=== PATIENT | male | born 2000 | race Caucasian/White ===

== ENCOUNTER 2020-11-17 07:00 | Day surgery (SDC) | payer OTHER, SELFPAY ==
--- NOTE | 2020-11-17 | EGD_PTH ---
PATIENT: SOPHIA PRUITT LOC: EN U#:[id number] AGE/SX: 20/M ROOM: RE11/17/[address]: Dr. Thai Benites MD : 2000 BED: DIS: 11/17/2020 SPEC #: [id number] RECD: 11/17/20 13:06 STATUS: JAIME AMANUEL #: [id number] ANNETTE: 11/17/20 00:[address]: Thai Benites DEPT: SURGICAL PATHOLOGY RECD BY: Walter Greene ENTERED: 11/17/20 13:06 SP TYPE: EGD BIOPSY OT DR: Dr. Narciso Meneses, DO Tissues: A - Duodenum, NOS B - Gastric mucous membrane C - Esophageal mucous membrane D - Esophageal mucous membrane Procedures: Surgery Specimen Level IV HEADER OPERATION: EGD ([facility] [place]) PRE-OP DIAGNOSIS: Gastric reflux, weight loss TISSUE SUBMITTED: A ? Duodenum biopsy, B ? Antrum biopsy for histo and H. pylori, C ? Distal esophagus biopsy, D ? Mid esophagus biopsy MICROSCOPIC DIAGNOSIS A. 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 B. Antrum, biopsy: Mild gastritis. See microscopic description and comment. C. Distal esophagus, biopsy: A fragment of squamous epithelium with minimal chronic inflammation. D. Mid esophagus, biopsy: A fragment of squamous epithelium with mild chronic inflammation. SJ:rg 11/20/2020 COMMENT B. The results of immunohistochemistry for Helicobacter pylori will be reported separately ([id number]). MICROSCOPIC DESCRIPTION Slides are reviewed. B. The specimen shows fragments of gastric mucosa with chronic inflammatory cell infiltrates in the lamina propria consisting of lymphocytes and plasma cells, consistent with mild chronic gastritis. Correlation with clinical, endoscopic findings and appropriate follow up are necessary. GROSS DESCRIPTION A - Received in fixative is one container labeled with the patient's name and designated duodenum biopsy. The specimen consists of two irregular fragments of light lua soft tissue that in aggregate measure 0.6 x 0.5 x 0.1 cm. The specimen is totally submitted in one cassette. B - Received in fixative is one container labeled with the patient's name and designated antrum biopsy. The specimen consists of one irregular fragment of light lua soft tissue that measures 0.3 x 0.3 x 0.1 cm. The specimen is totally submitted in one cassette. C - Received in fixative is one container labeled with the patient's name and designated distal esophagus biopsy. The specimen consists of one irregular fragment of light lua soft tissue that measures 0.7 x 0.3 x 0.1 cm. The specimen is totally submitted in one cassette. D - Received in fixative is one container labeled with the patient's name and designated mid esophagus biopsy. The specimen consists of one irregular fragment of light lua soft tissue that measures 0.5 x 0.2 x 0.1 cm. The specimen is totally submitted in one cassette. / SJ:rg 11/17/20 TC:3 CPT: 80399 x4
[2020-11-17 07:20] VITALS: BP 122/47; PULSE 64; RESP 18; TEMP 36.2; O2SAT 100; BMI 21.5
[2020-11-17] MEDS: Lactated Ringers 1,000 ML 100 ML IV (07:30)
--- NOTE | 2020-11-17 07:53 | HP.PCM_ITS ---
History and Physical Date of Admission: 11/17/20 Intake Visit Reasons: GERD, WEIGHT LOSS Chief Complaint: gerd Coating Inspector Required: No Is patient in pain?: No Allergies No Known Allergies Allergy (Unverified 10/25/20 14:51) Medications pantoprazole 40 mg tablet,delayed release 40 mg PO DAILY #30 tab 10/18/20 [Rx Confirmed 10/25/20] [facility] Medical History Peptic duodenitis Family History (Updated 10/25/20 @ 14:50 by Jayleen Ibarra) Father Hypertension Unknown Malignant hyperthermia due to anesthesia Social History (Updated 10/25/20 @ 14:50 by Jayleen Ibarra) Smoking Status: Never smoker alcohol intake: never HPI HPI HPI: SOPHIA PRUITT, is a 20 M who presents to the office today for surgical consultation regarding indigestion and weight loss. The patient is referred by Dr. Jose Meneses and written copy my surgical consult recommendations will return to him. The patient was recently prescribed pantoprazole 40 mg daily. He had presented to Dr. Meneses with concerns of epigastric pain and weight loss. These problems have been ongoing since May 2020. Apparently previously after being placed on H2 blockers and proton pump inhibitors the epigastric pain seemed to resolve but then he started having problems with GE reflux. At the time of his presentation Dr. Meneses he was taking no medications. He was complaining of a 15 pound weight loss. In addition the patient is reporting some difficulty with having food go down but will improve by taking water. By report the patient had a barium swallow. By verbal report this was normal. The patient also had a ultrasound. By report this was also normal. Both of these were exams performed at [facility]. The patient denies having had COVID-19 to his understanding. He has not been vaccinated and at this point is not anticipating pursuing that. His occupation is making furniture ROS General General: Yes weight change; No appetite, fatigue, colon cancer, breast cancer or weakness HEENT HEENT: No difficulty swallowing, eye injury, eye surgery, swollen glands or hoarseness Endo Endocrine: No thyroid disease, diabetes mellitus, thyroid cancer, Hair loss, heat intolerance or cold intolerance Skin Skin: No rash or changing moles Breast Breast: No left breast lump, right breast lump, nipple discharge, breast pain, abnormal mammogram, abnormal US or breast enlargement Musc Musculoskeletal: No back problems, arthritis, rheumatoid arthritis, gout or joint pain Cardio Cardiovascular: No murmur, pacemaker, heart disease, atrial fibrillation, high blood pressure, heart attack, heart stent, palpitations, shortness of breat with exertion or chest pain Psych Psychiatric: No depression, anxiety or hearing voices Resp Respiratory: No shortness of breath, No sleep apnea, No cough, No COPD, No asthma, No emphysema and No wheezing Gastro Gastrointestinal: Yes abdominal pain, No nausea or vomiting, No diarrhea, Yes constipation, No blood in stool, Yes acid reflux, No hemorrhoids, Yes ulcers, No gallbladder problem and No black,tarry stools Christiano Hematologic: No blood thinners, No blood disorders, No bleeding, No anemia and No blood clots Neuro Neurologic: No system reviewed and no additional complaints, except as documented, No as per HPI, No abnormal gait, No abnormal hearing, No abnormal movements, No abnormal speech, No behavioral changes, No burning sensations, No confusion, No convulsions, No disequilibrium, No dizziness, No localized weakness, No frequent falls, No headache(s), No lack of coordination, No loss of vision, No memory loss, No numbness, No other visual disturbances, No radicular pain, No restless legs, No sensory deficit, No syncope, No tingling, No tremor(s), No weakness and No other Exam Const General: cooperative, healthy appearing, comfortable and no acute distress Nutritional Appearance: average body habitus Orientation: alert and awake [facility] Head: normal to inspection Eyes General: appearance normal, both eyes and all related structures Chest Chest palpation & inspection: normal inspection of the chest Resp Effort & Inspection: normal respiratory effort Auscultation: clear to auscultation bilaterally Cardio Rate: regular rate Rhythm: regular rhythm GI Palpation: soft and no hepatosplenomegaly Auscultation: normal bowel sounds Musc Cervical Spine: normal cervical lordosis Neuro Cognition: normal cognition Extrem General: no calf tenderness Psych Affect: normal affect COVID (Procedure Consent) Procedure Criteria Procedure Criteria: Yes Elective The surgeon/proceduralist and patient have discussed in detail the risk of exposure to and/or potential harm posed by the COVID-19 virus with having a surgery/procedure at this time versus the risk of delaying the surgery/procedure. It is not possible to know either the risk of delaying the surgery or procedure or chance of getting an infection with perfect accuracy, but a joint decision was made between the patient and the surgeon/proceduralist to proceed at this time with the scheduled surgery/procedure as indicated on the consent form. Assessment and Plan Assessment and Plan (1) Gastric reflux: Status: Acute (2) Weight loss, non-intentional: Status: Acute Plan - Dr. Thai Benites MD: 20-year-old gentleman who has had problems with retrosternal pain and heartburn and symptoms that sound like gastroesophageal reflux disease. He is currently on pantoprazole and taking it and and symptoms have improved. There are no specific food categories to cause problems. He thinks peanut butter can be problematic but then he just ate peanuts today without trouble. I propose for him a esophagogastroduodenoscopy with possible biopsy. Careful inspection for H. pylori or reflux changes or stricturing or eosinophilic esophagitis will be pursued. I have also requested that we obtain records of the previous barium swallow and ultrasound test performed in [facility]. He claims a family history of malignant hyperthermia. I will perform the procedure with monitored anesthesia care. He has had an opportunity to ask and have questions answered. We will schedule procedure at his discretion. I very much appreciate the kind opportunity of assisting with the surgical care. Copy: Dr. Jose Benites M.D., F.A.C.S. I have re-examined the patient. There are no clinical changes since date of exam. Thai Benites M.D., F.A.C.S.
--- NOTE | 2020-11-17 08:00 | IMM_PTH ---
PATIENT: SOPHIA PRUITT LOC: EN U#:[id number] AGE/SX: 20/M ROOM: RE11/17/[address]: Dr. Thai Benites MD : 2000 BED: DIS: 11/17/2020 SPEC #: [id number] RECD: 11/17/20 13:44 STATUS: JAIME RENiesha #: [id number] ANNETTE: 11/17/20 08:[address]: Thai Benites DEPT: IMMUNOHISTOCHEMISTRY RECD BY: Elly Sung ENTERED: 11/17/20 13:44 SP TYPE: IMMUNO OTHR DR: Dr. Narciso Meneses, DO Tissues: B - Stomach, NOS Procedures: H Pylori (initial) PHYSICIAN & INSTITUTION [place] [id number] SPECIMEN INFORMATION: Tissue Source: B ? Antrum biopsy Clinical Info: Gastric reflux, weight loss Specimen Number: [id number] CPT code: 67911 METHODOLOGY: Deparaffinized sections of prefer/formalin-fixed tissue or PAP/DQ stained slides are incubated with monoclonal/polyclonal antibodies/oligonucleotide probes. Localization is made via biotin free immunoperoxidase method. Appropriate controls are performed and reacted as expected. Results on target cell population are indicated in the following table: RESULTS: ANTIBODY / CLONE RESULT Block B H Pylori (polyclonal) negative These tests were developed and their performance characteristics determined by [facility]. They may not have been cleared or approved by the U.S. Food and Drug Administration. The FDA has determined that such clearance or approval is not necessary. INTERPRETATION: B. Antrum biopsy: Negative for Helicobacter pylori organisms. SJ:iftikhar 11/20/2020
[2020-11-17 08:20] VITALS: BP 101/41; BP 122/47; PULSE 78; RESP 16; TEMP 36.6; O2SAT 100
--- NOTE | 2020-11-17 08:20 | OP.CCLET_ITS ---
11/17/2020 Narciso Meneses Re : Upper GI endoscopy procedure for Tyler Mi Dear Dr. Meneses This procedure was performed on Tuesday, November 17, 2020. My impressions and recommendations are as follows: Impressions : - Normal esophagus. Biopsied mid and distally. - 1 cm hiatal hernia. - Normal stomach. Biopsied. - Normal examined duodenum. Biopsied. Recommendations : - Discharge patient to home. - Resume previous diet. - Continue present medications. - Telephone my office for pathology results in 1 week. Findings do not seem to correlate with severity of symptoms. Will await pathology My findings are described in the full procedure note, which is enclosed. If I can be of further assistance, please feel free to contact me at Doctor phone number(s): Work: . Sincerely, Thai Benites MD 11/17/2020 8:20:10 AM This report has been signed electronically.
--- NOTE | 2020-11-17 08:20 | OP.EGD_ITS ---
Patient Name: Tyler Mi Procedure Date: 11/17/2020 7:55 AM Date of : 2000 Age: 20 Procedure: Upper GI endoscopy Indications: Heartburn Providers: Thai Benites MD Medicines: See the Anesthesia note for documentation of the administered medications Complications: No immediate complications. Procedure: Pre-Anesthesia Assessment: - Prior to the procedure, a History and Physical was performed, and patient medications and allergies were reviewed. The patient's tolerance of previous anesthesia was also reviewed. The risks and benefits of the procedure and the sedation options and risks were discussed with the patient. All questions were answered, and informed consent was obtained. Prior Anticoagulants: The patient has taken no previous anticoagulant or antiplatelet agents. ASA Grade Assessment: II - A patient with mild systemic disease. After reviewing the risks and benefits, the patient was deemed in satisfactory condition to undergo the procedure. After obtaining informed consent, the endoscope was passed under direct vision. Throughout the procedure, the patient's blood pressure, pulse, and oxygen saturations were monitored continuously. The Endoscope was introduced through the mouth, and advanced to the second part of duodenum. The upper GI endoscopy was accomplished without difficulty. The patient tolerated the procedure well. Scope In: 8:07:02 AM Scope Out: 8:12:42 AM Total Procedure Duration Time 0 hours 5 minutes 40 seconds Findings: The examined esophagus was normal. Biopsies were taken with a cold forceps for histology of the mid and distal esophagus A 1 cm hiatal hernia was present. The entire examined stomach was normal. Biopsies were taken with a cold forceps for histology. The examined duodenum was normal. Biopsies were taken with a cold forceps for histology. Impression: - Normal esophagus. Biopsied mid and distally. - 1 cm hiatal hernia. - Normal stomach. Biopsied. - Normal examined duodenum. Biopsied. Recommendation: - Discharge patient to home. - Resume previous diet. - Continue present medications. - Telephone my office for pathology results in 1 week. Findings do not seem to correlate with severity of symptoms. Will await pathology Procedure Code(s): --- Professional --- 97326, Esophagogastroduodenoscopy, flexible, transoral; with biopsy, single or multiple Diagnosis Code(s): --- Professional --- K44.9, Diaphragmatic hernia without obstruction or gangrene R12, Heartburn CPT copyright 2017 [employer]. All rights reserved. The codes documented in this report are preliminary and upon zipper machine operator review may be revised to meet current compliance requirements. Thai Benites MD 11/17/2020 8:20:10 AM This report has been signed electronically. Number of Addenda: 0 Note Initiated On: 11/17/2020 7:55 AM
[2020-11-17 08:25] VITALS: BP 111/50; BP 122/47; PULSE 80; RESP 16; O2SAT 98
[2020-11-17 08:30] VITALS: BP 122/47; BP 98/32; PULSE 64; RESP 16; O2SAT 99
[2020-11-17 08:35] VITALS: BP 102/45; BP 122/47; PULSE 65; RESP 16; TEMP 36.6; O2SAT 96
[2020-11-17 08:48] VITALS: BP 122/47
== END 2020-11-17 08:52 ==
LOC: EN 07:01 → AC 07:01
PROVIDERS: PCP Family Medicine; Referring Provider Family Medicine; Visit Provider Surgery
PROC: 0DJ08ZZ Inspection of Upper Intestinal Tract, Via Natural or Artificial Opening Endoscopic (ICD-10-PCS; CPT 43235; principal; 2020-11-17 07:55)
DX: K29.50 Unspecified chronic gastritis without bleeding (principal); K44.9 Diaphragmatic hernia without obstruction or gangrene; Z20.822 Contact with and (suspected) exposure to COVID-19; K21.9 Gastro-esophageal reflux disease without esophagitis; R63.4 Abnormal weight loss; R12 Heartburn
CPT/HCPCS: 43239; 87426; 88305; 88342; C9803; J7120

== ENCOUNTER 2020-12-22 09:54 | Day surgery (SDC) | payer OTHER, SELFPAY ==
[2020-12-22 14:50] VITALS: BP 116/58; PULSE 64; RESP 16; TEMP 36.6; O2SAT 100
[2020-12-22] MEDS: Lidocaine Jelly 2% 20 ML Syringe (URO-JET) 20 APPLIC (15:27)
== END 2020-12-22 15:28 ==
PROVIDERS: PCP Family Medicine; Referring Provider Surgery; Visit Provider Surgery
PROC: F00ZJWZ Instrumental Swallowing and Oral Function Assessment using Swallowing Equipment (ICD-10-PCS; CPT 43235; principal; 2020-12-22 09:55)
DX: K21.9 Gastro-esophageal reflux disease without esophagitis (principal); R63.4 Abnormal weight loss; Z20.822 Contact with and (suspected) exposure to COVID-19
CPT/HCPCS: 91010; 87426; C9803; J7120

== ENCOUNTER 2021-05-02 06:00 | Day surgery (SDC) | payer OTHER, SELFPAY ==
[2021-05-02] VITALS (12 sets, daily range): BP systolic 120–150; BP diastolic 53–80; PULSE 56–85; RESP 15–16; TEMP 36.6–37.7; O2SAT 98–100; BMI 24.7
--- NOTE | 2021-05-02 06:30 | PCM.HP.BLA ---
History and Physical Date of Admission: 05/02/21 Visit Reasons: update h&p lap sukhdeep 05/02 Chief Complaint: Update H&P Lap Sukhdeep 05/02 RC Pheresis Nurse Required: No Is patient in pain?: No Allergies No Known Allergies Allergy (Verified 04/26/21 10:20) Medications pantoprazole 40 mg tablet,delayed release See Rx Instructions .ROUTE .COMPLEX #90 tab 04/02/21 [Rx Confirmed 04/26/21] PFSH Medical History Alcohol use Gastric reflux Migraine headache Non-smoker Peptic duodenitis Surgical History Hx of colonoscopy Hx of esophagogastroduodenoscopy Family History Father Hypertension Unknown Malignant hyperthermia due to anesthesia Social History Smoking Status: Never smoker alcohol intake: never HPI HPI HPI: SOPHIA PRUITT, is a 20 M who presents to the office today for an update history and physical. Patient denies any recent hospitalizations or illnesses. He denies any recent medication changes. He continues to note reflux symptoms if he misses two or three doses of medication. He denies any history of complications or side effects from anesthesia. He denies any previous abdominal surgeries. He denies previous history of cardiac or pulmonary disease. Patient's previous history per Dr. Benites: SOPHIA PRUITT, is a 20 M who presents to the office today for surgical follow-up of his retrosternal pain and a esophagogastroduodenoscopy with biopsy that performed for him on November 17, 2020 That demonstrated a 1 cm hiatal hernia. The esophagus visibly appeared unremarkable. Biopsies of the duodenum showed Escobar's gland hyperplasia. Antrum mild gastritis. H. pylori was negative. Distal esophagus showed minimal chronic inflammation. Midesophagus showed mild chronic inflammation. I was able to receive records from [facility] dated August 18, 2020 which was a abdominal ultrasound. The liver gallbladder appeared to be normal. No acute findings. On August 07, 2020 white count was 7.4 with a hemoglobin 15.3 hematocrit 43.8 platelet count 216,000. BMP was normal with a BUN of 15 creatinine of 1. Liver function tests were normal. Amylase and lipase were normal. The patient on August 03, 2020 at [facility] had a contrast upper GI study. The esophagus grossly appeared to be normal with normal-appearing peristalsis. No GE reflux was identified during that exam. Duodenal bulb was unremarkable. There is felt to be a slight delay in passage of contrast through the third portion of the duodenum at the expected location of the SMA but this is minimal. There is no dilatation normal proximal duodenum. The exam was felt to be unremarkable. On December 22, 2020 the patient had esophageal manometry performed at the [facility]. 10 swallows were analyzed. Normal bolus clearance. 1 week swallow with some retraining bolus. Normal LES. SOPHIA PRUITT, is a 20 M who presents to the office today for surgical consultation regarding indigestion and weight loss. The patient is referred by Dr. Jose Meneses and written copy my surgical consult recommendations will return to him. The patient was recently prescribed pantoprazole 40 mg daily. He had presented to Dr. Meneses with concerns of epigastric pain and weight loss. These problems have been ongoing since May 2020. Apparently previously after being placed on H2 blockers and proton pump inhibitors the epigastric pain seemed to resolve but then he started having problems with GE reflux. At the time of his presentation Dr. Meneses he was taking no medications. He was complaining of a 15 pound weight loss. In addition the patient is reporting some difficulty with having food go down but will improve by taking water. By report the patient had a barium swallow. By verbal report this was normal. The patient also had a ultrasound. By report this was also normal. Both of these were exams performed at [facility]. The patient denies having had COVID-19 to his understanding. He has not been vaccinated and at this point is not anticipating pursuing that. His occupation is making furniture ROS General General: Yes weight change; No appetite, fatigue, colon cancer, breast cancer or weakness HEENT HEENT: No difficulty swallowing, eye injury, eye surgery, swollen glands or hoarseness Endo Endocrine: No thyroid disease, diabetes mellitus, thyroid cancer, Hair loss, heat intolerance or cold intolerance Skin Skin: No rash or changing moles Breast Breast: No left breast lump, right breast lump, nipple discharge, breast pain, abnormal mammogram, abnormal US or breast enlargement Musc Musculoskeletal: No back problems, arthritis, rheumatoid arthritis, gout or joint pain Cardio Cardiovascular: No murmur, pacemaker, heart disease, atrial fibrillation, high blood pressure, heart attack, heart stent, palpitations, shortness of breat with exertion or chest pain Psych Psychiatric: No depression, anxiety or hearing voices Resp Respiratory: No shortness of breath, No sleep apnea, No cough, No COPD, No asthma, No emphysema and No wheezing Gastro Gastrointestinal: Yes abdominal pain, No nausea or vomiting, No diarrhea, Yes constipation, No blood in stool, Yes acid reflux, No hemorrhoids, Yes ulcers, No gallbladder problem and No black,tarry stools Christiano Hematologic: No blood thinners, No blood disorders, No bleeding, No anemia and No blood clots Neuro Neurologic: No system reviewed and no additional complaints, except as documented, No as per HPI, No abnormal gait, No abnormal hearing, No abnormal movements, No abnormal speech, No behavioral changes, No burning sensations, No confusion, No convulsions, No disequilibrium, No dizziness, No localized weakness, No frequent falls, No headache(s), No lack of coordination, No loss of vision, No memory loss, No numbness, No other visual disturbances, No radicular pain, No restless legs, No sensory deficit, No syncope, No tingling, No tremor(s), No weakness and No other Exam Const General: cooperative, healthy appearing, comfortable and no acute distress [facility] Head: normal to inspection Eyes General: appearance normal, both eyes and all related structures Neck Neck: normal visual inspection Neck mass: No Resp Effort & Inspection: normal respiratory effort Auscultation: clear to auscultation bilaterally Cardio Rate: regular rate Rhythm: regular rhythm Bruits: no carotid bruits GI Inspection: normal to inspection Palpation: soft and nontender Auscultation: normal bowel sounds Skin General: no rashes or lesions noted Neuro General: no focal motor deficits and CN's II-XI intact bilaterally Extrem General: normal to inspection Psych Appearance: grossly normal Affect: normal affect COVID (Procedure Consent) Procedure Criteria Procedure Criteria: Yes Elective The surgeon/proceduralist and patient have discussed in detail the risk of exposure to and/or potential harm posed by the COVID-19 virus with having a surgery/procedure at this time versus the risk of delaying the surgery/procedure. It is not possible to know either the risk of delaying the surgery or procedure or chance of getting an infection with perfect accuracy, but a joint decision was made between the patient and the surgeon/proceduralist to proceed at this time with the scheduled surgery/procedure as indicated on the consent form. Assessment and Plan Assessment and Plan (1) Gastric reflux: Status: Acute Plan - Judy PAN, PATessieC: Dr. Benites will plan to perform a laparoscopic Sukhdeep fundoplication. Procedure details, risks and benefits have been explained/reviewed. Post-operatively instructions and diet were discussed. Patient has had the opportunity to ask and have questions answered. Patient verbally understands and agrees with the plan. Patient is aware he will need a 6 week recovery period secondary to the amount of lifting he has to do for his occupation. Patient is also aware we will be continuing his pantoprazole 40 mg daily until he has returned to a regular diet. Renewal of this medication will be sent to the patient's pharmacy in his chart. I have re-examined the patient. There are no clinical changes since date of exam. Thai Benites M.D., F.A.C.S.
--- NOTE | 2021-05-02 06:39 | PCM.DC ---
Discharge Instructions Activity Discharge Activity: May Not Drive (for 3-5 days or while taking narcotic pain medicine.) May shower in (days): 1 Lifting Restrictions: 10 pounds Dressing / Incision Call your doctor if your incision/area has: Continuous Slow Oozing, Sudden Increased Bleeding, Increased Pain/ Swelling, Increased Redness and Foul Smelling Discharge Call your doctor if you observe: Fever of 101 or Higher Suture Line Care: Avoid Pulling/Pushing and Avoid Pinching/Bending Additional Dressing/Incision Instructions:: Change or remove dressing in 4 days. Leave steri-strips in place for 1 week. Follow Up Care Please Follow Up With: Thai Benites MD When: Call [phone] to make an appointment to be seen in about 10 days. Test Results: Please refer to your written instruction sheets regarding diet and activity recommendations. Call [phone] for office appointment in approximately 7 days Discharge Plan Admission Primary Reason for Your Visit: iNTRACTABLE GASTROESOPHAGEAL REFLUX DISEASE Attending Provider: Thai Benites Primary Care Provider: Narciso Meneses Discharge Orders/Prescriptions Prescriptions: Continued pantoprazole 40 mg tablet,delayed release (DR/EC) See Rx Instructions .ROUTE .COMPLEX Qty: 90 RF: 0 Referrals / Follow Up: Narciso Meneses DO [Primary Care Provider] - Disposition Disposition (needs filled in before D/C Order can be placed): Home, Self Care
[2021-05-02] MEDS: Lactated Ringers 1,000 ML 30 ML IV ×2 (06:46→10:00)
[2021-05-02] MEDS: Cefazolin 2 GM in 0.9% Normal Saline 100 ML IV (07:52)
[2021-05-02] MEDS: Lidocaine 2% (20 ml mdv) 20 ML Vial (08:24)
[2021-05-02] MEDS: Bupivacaine Mpf 0.5% 30 ML VIAL (08:24)
--- NOTE | 2021-05-02 10:41 | PCM.OPRPT ---
Problems Associated Problem List Diagnoses (1) Gastric reflux: Report of Operation Date of Procedure: 05/02/21 Pre-Operative Diagnosis: Intractable gastroesophageal reflux disease Post-Operative Diagnosis: Same Surgery/Procedure Performed:: Laparoscopic Sergio fundoplication. Esophagogastroduodenoscopy at completion. Description of Surgical Findings:: Timeout informed consent was obtained. 20-year-old gentleman was taken to the operating placed on table underwent general endotracheal ovation esthesia. Care was taken secondary to a family history of malignant hyperthermia. Ancef 2 g were given intravenously. The patient was placed in a low lithotomy position. Careful buttock roll was placed. Beanbag was placed. Arms were padded. He was placed in a soft spine position he was placed in the low lithotomy position. The abdomen sterilely prepped and draped. Ioban draping was used. 20 cc of 1% lidocaine was mixed with 30 cc of 0.5% Marcaine and used as a local anesthetic. Superior right upper abdomen made a 5 mm incision used a 5 mm direct Visiport technology the abdomen was then insufflated with CO2 to a pressure of 10 mmHg pressure no evidence of any trocar injuries 10 mm port was placed in the left upper quadrant 2 more 5 mm ports in the left subcostal area the patient was placed in the reverse Trendelenburg position the EG junction inspected the epigastric peritoneal tissue identified and incised with harmonic scalpel completely dissected free off the anterior surface of the esophagus taking care not to interfere with the anterior vagus nerve. Right and left peter were identified as carefully the EG junction was freed. Harmonic Scalpel dissection views were indicated. After advancing that dissection I then found short gastrics emanating from the proximal portion of the stomach and transected those with the harmonic scalpel. This gave me excellent view of the left peter I was able to work posteriorly. I could then get a 1 inch Leny drain around the EG junction that allowed me to elevate the esophagus and work circumferentially into the mediastinum for approximately 4 to 5 cm. Had a circumferentially freed. Posterior vagus nerve carefully protected. Right and left peter clearly identified. Having now completely freed the EG junction getting the esophagus stomach nicely down in the abdomen. I repaired the posterior aspect of the peter with 0 Ethibond sutures with small pledgets. 3 sutures were applied in a simple technique. Then a 45 [place] bougie was placed there appeared to be adequate room. I then took the fundus of the stomach and wrapped it circumferentially tested the the length and distance trying to make a floppy Sergio. I secured the back posterior aspect with 0 Nurolon to the diaphragm. I then completed the 360 wrap using simple sutures of 0 Ethibond securing the fundus to the esophagus to the epiphrenic ligament and to the wrap portion of the fundus. A short 2 and half centimeter wrap was performed with 3 separate sutures. A separate collar stitch was placed inferiorly on the left. I then performed upper endoscopy as noted in the probation dictation. Demonstrated the scope did advance through the junction but that that junction now was competent. Just a slight amount of resistance at that area. The scope was retroflexed in the EG junction inspected the wrap noted to be intact. The scope was briefly advanced to the duodenum excess fluid nurse aspirated free no additional abnormalities noted. An OG tube was replaced to assure complete the inflation. While the scope was then there fluid was instilled into the abdomen and there is no evidence of any air leak. Then using the local I did a left subcostal transabdominal plane block under laparoscopic visualization. The 10 mm trocar was removed and a grainy needle was used to place a [id number] suture of 0 Vicryl in the fascia. Then the abdomen was now deflated through an antiviral valve. It is of note that at the initiation of the procedure an additional 5 mm port was placed in the epigastric area and a Osiris was directed was placed to help hold up that left the liver at this was removed at the completion liver nicely intact. Skin edges proximal interrupted 4 Monocryl subdermal stitches. Steri-Strips Telfa OpSite dressings applied. Sponge and instrument and needle counts were reported to the surgeon be correct. Blood loss was quite minimal. Specimens none. Drains none. Thai Benites M.D., F.A.C.S. Surgeon: Thai Benites Type of Anesthesia: General and Local Anesthesiologist: Primo Chawla
[2021-05-02] MEDS: Lidocaine 1% (20 ml mdv) 20 ML Vial (10:50)
--- NOTE | 2021-05-02 10:57 | OP.EGD_ITS ---
Patient Name: Tyler Mi Procedure Date: 05/02/2021 7:27 AM Date of : 2000 Age: 20 Procedure: Upper GI endoscopy Indications: Heartburn Providers: Thai Benites MD Medicines: General Anesthesia Complications: No immediate complications. Procedure: Pre-Anesthesia Assessment: - Prior to the procedure, a History and Physical was performed, and patient medications and allergies were reviewed. The patient's tolerance of previous anesthesia was also reviewed. The risks and benefits of the procedure and the sedation options and risks were discussed with the patient. All questions were answered, and informed consent was obtained. Prior Anticoagulants: The patient has taken no previous anticoagulant or antiplatelet agents. ASA Grade Assessment: II - A patient with mild systemic disease. After reviewing the risks and benefits, the patient was deemed in satisfactory condition to undergo the procedure. After obtaining informed consent, the endoscope was passed under direct vision. Throughout the procedure, the patient's blood pressure, pulse, and oxygen saturations were monitored continuously. The Endoscope was introduced through the mouth, and advanced to the second part of duodenum. The gastroscope was introduced through the mouth, and advanced to the second part of duodenum. The upper GI endoscopy was accomplished without difficulty. The patient tolerated the procedure well. Scope In: 10:25:35 AM Scope Out: 10:28:24 AM Total Procedure Duration Time 0 hours 2 minutes 49 seconds Findings: The examined esophagus was normal. Evidence of a Sergio fundoplication was found in the gastric fundus. The wrap appeared intact. The examined duodenum was normal. Impression: - Normal esophagus. - A Sergio fundoplication was found. The wrap appears intact. - Normal examined duodenum. - No specimens collected. Recommendation: - Discharge patient to home. - Clear liquid diet. - Continue present medications. - Return to my office in 1 week. Procedure Code(s): --- Professional --- 22564, Esophagogastroduodenoscopy, flexible, transoral; diagnostic, including collection of specimen(s) by brushing or washing, when performed (separate procedure) Diagnosis Code(s): --- Professional --- Z98.890, Other specified postprocedural states R12, Heartburn CPT copyright 2017 [employer]. All rights reserved. The codes documented in this report are preliminary and upon assembler fishing floats review may be revised to meet current compliance requirements. Thai Benites MD 05/02/2021 10:56:27 AM This report has been signed electronically. Number of Addenda: 0 Note Initiated On: 05/02/2021 7:27 AM
== END 2021-05-02 23:59 | disposition home or self-care (01) ==
LOC: SDC 06:01 → AC 06:02
PROVIDERS: PCP Family Medicine; Referring Provider Surgery; Visit Provider Surgery
PROC: (CPT 43325; principal; 2021-05-02 07:40)
DX: K21.9 Gastro-esophageal reflux disease without esophagitis (principal); R63.4 Abnormal weight loss; Z20.822 Contact with and (suspected) exposure to COVID-19; Z68.24 Body mass index [BMI] 24.0-24.9, adult
CPT/HCPCS: 43280; 43235; 00500; 87426; C9803; J7120; J2405